=== PATIENT | male | born 1945 | race Hispanic/Latino ===

== ENCOUNTER 2017-05-28 00:48 | Emergency (ER) | payer OTHER ==
[2017-05-28] MEDS ORDERED: Diltiazem 125 MG/25 ML ONE (02:15)
[2017-05-28 02:22] LABS: INR-International Normal Ratio 1.1; PTT 31.2 SEC (22.9-36.1); Prothrombin Time 13.9 SEC (12.0-14.7)
[2017-05-28 02:31] LABS: Anion Gap 17 mmol/L (10-20); BUN (Urea Nitrogen) 41 mg/dL (8.4-25.7); Calcium 9.5 mg/dL (7.8-10.44); Carbon Dioxide 25 mmol/L (23-31); Chloride 101 mmol/L (98-107); Glucose 123 mg/dL (80-115); Potassium 4.8 mmol/L (3.5-5.1); Sodium 138 mmol/L (136-145)
[2017-05-28 02:38] LABS: Troponin I 0.029 ng/mL (< 0.028)
[2017-05-28 02:39] LABS: #Basophils 0.1 thou/uL (0.0-0.2); #Eosinphils 0.1 thou/uL (0.0-0.7); #Monocytes 0.7 thou/uL (0.11-0.59); #Neutrophils 6.8 thou/uL (1.40-6.50); %Basophils 0.9 % (0.0-1.0); %Eosinophils 1.6 % (0.0-10.0); %Lymphocytes 11.8 % (21.0-51.0); %Monocytes 8.4 % (0.0-10.0); %Neutrophils 77.3 % (42.0-75.0); Hemoglobin 9.4 g/dL (14.0-18.0); Mean Corpuscular HGB CONC 32.2 g/dL (32.0-36.0); Mean Corpuscular Hemoglobin 27.7 pg (27.0-31.0); Mean Corpuscular Volume 86.1 fl (80.0-94.0); Mean Platelet Volume 7.3 fL (7.4-10.4); Platelet Count 171 thou/uL (130-400); RBC Distribution Width 15.2 % (11.5-14.5); Red Blood Cell (RBC) Count 3.41 mill/uL (4.70-6.10); White Blood Cell (WBC) Count 8.8 thou/uL (4.8-10.8)
[2017-05-28 02:42] LABS: CKMB 0.8 ng/mL (0-6.6)
[2017-05-28 03:05] LABS: Calc. Creatinine Clearance 0 mL/min (70-130); Estimated GFR-MDRD 6
[2017-05-28] MEDS ORDERED: Oseltamivir 75 MG CAP ONE (03:24)
[2017-05-28] MEDS ORDERED: HYDROcodone/Acetaminophen 10/325 mg Tablet ONE (03:24)
[2017-05-28] MEDS ORDERED: Amoxicillin/Potassium Clav 875 MG TAB ONE (03:26)
--- NOTE | 2017-05-28 08:09 | RAD ---
PORTABLE CHEST 1 VIEW: DATE: 05/28/17. TIME: 2:12 a.m. HISTORY: Dyspnea. FINDINGS: Comparison is made with the exam of 07/30/15. A left-sided pacing device remains in place. The heart is enlarged. A left internal jugular dialysi s catheter is present with tip in the projection of the cavoatrial junction. The lungs are well expa nded without focal areas of consolidation, pneumothorax, lloyd pulmonary edema, or large effusions. POS: [facility]
--- NOTE | 2017-05-28 08:11 | RAD ---
ABDOMEN 1 VIEW: HISTORY: Abdominal pain. FINDINGS/IMPRESSION: A large-bore venous catheter is seen extending from the right groin into the right upper quadrant wit h tip in the projection of the IVC. Surgical clips are present in the right groin and the right uppe r quadrant. A right common iliac vascular stent is present. The bowel gas pattern is unremarkable. There are degenerative changes in the spine. POS: [facility]
== END 2017-05-28 03:45 | disposition home or self-care (01) ==
LOC: EDBD → MADERS 00:48
DX: J11.1 Influenza due to unidentified influenza virus with other respiratory manifestations (principal); I25.10 Atherosclerotic heart disease of native coronary artery without angina pectoris; E78.5 Hyperlipidemia, unspecified; E11.9 Type 2 diabetes mellitus without complications; I12.0 Hypertensive chronic kidney disease with stage 5 chronic kidney disease or end stage renal disease; N18.6 End stage renal disease; Z79.899 Other long term (current) drug therapy
CPT/HCPCS: 36415; 71010; 74000; 80048; 82553; 83880; 84484; 85025; 85610; 85730; 93005; 94760; 96374

== ENCOUNTER 2017-06-17 00:14 | Emergency (ER) | payer OTHER ==
[2017-06-17] MEDS ORDERED: Acetaminophen 500 MG TAB ONE (00:48)
[2017-06-17 00:49] LABS: #Basophils 0.1 thou/uL (0.0-0.2); #Eosinphils 0.2 thou/uL (0.0-0.7); #Lymphocytes 1.1 thou/uL (1.20-3.40); #Monocytes 0.8 thou/uL (0.11-0.59); %Basophils 0.6 % (0.0-1.0); %Lymphocytes 11.7 % (21.0-51.0); %Monocytes 8.9 % (0.0-10.0); %Neutrophils 76.8 % (42.0-75.0); Hemoglobin 8.9 g/dL (14.0-18.0); Mean Corpuscular HGB CONC 31.5 g/dL (32.0-36.0); Mean Corpuscular Volume 85.7 fl (80.0-94.0); Mean Platelet Volume 7.2 fL (7.4-10.4); Platelet Count 189 thou/uL (130-400); RBC Distribution Width 14.6 % (11.5-14.5); White Blood Cell (WBC) Count 9.1 thou/uL (4.8-10.8)
[2017-06-17 01:15] LABS: ALT (SGPT) 13 U/L (8-55); AST (SGOT) 13 U/L (5-34); Albumin 3.4 g/dL (3.4-4.8); Alkaline Phosphatase 81 U/L (40-150); Anion Gap 19 mmol/L (10-20); BUN (Urea Nitrogen) 20 mg/dL (8.4-25.7); Bilirubin, Total 0.5 mg/dL (0.2-1.2); CK (CPK) 34 U/L (30-200); Calc. Creatinine Clearance 0 mL/min (70-130); Calcium 8.8 mg/dL (7.8-10.44); Carbon Dioxide 25 mmol/L (23-31); Chloride 100 mmol/L (98-107); Estimated GFR-MDRD 10; Globulin 3.5 g/dL (2.4-3.5); Glucose 130 mg/dL (80-115); Potassium 3.6 mmol/L (3.5-5.1); Protein, Total 6.9 g/dL (5.8-8.1); Sodium 140 mmol/L (136-145)
[2017-06-17 01:18] LABS: CKMB 0.5 ng/mL (0-6.6); Troponin I 0.028 ng/mL (< 0.028)
[2017-06-17] MEDS ORDERED: Ibuprofen 200 MG TAB ONE (01:20)
[2017-06-17 01:44] LABS: Lipase 27 U/L (8-78)
[2017-06-17] MEDS ORDERED: Ondansetron ODT 4 MG TAB ONE (01:59)
[2017-06-17] MEDS ORDERED: Piperacillin/Tazobactam 4.5 GM VIAL ONE (02:03)
[2017-06-17] MEDS ORDERED: Sodium Chloride 0.9% 100 ML ONE (02:04)
--- NOTE | 2017-06-17 07:40 | RAD ---
SINGLE VIEW OF THE CHEST: COMPARISON: 05/28/17. HISTORY: Shortness of breath and dyspnea. FINDINGS: A single view of the chest shows a cardiomediastinal silhouette which is upper limits of normal in si ze. The dialysis catheter and pacemaker are unchanged in position. There is no evidence of consolid ation, mass, or pleural effusion. IMPRESSION: No evidence of acute cardiopulmonary disease. POS: [facility]
[2017-06-17] MEDS ORDERED: Sodium Chloride 0.9% 500 ML BAG ONE (08:50)
[2017-06-17] MEDS ORDERED: Sodium Chloride 0.9% 1,000 ML BAG ONE (08:50)
== END 2017-06-17 02:44 | disposition short-term general hospital (02) ==
LOC: EDBD → MADERS 00:14
DX: A41.9 Sepsis, unspecified organism (principal); I12.0 Hypertensive chronic kidney disease with stage 5 chronic kidney disease or end stage renal disease; N18.6 End stage renal disease; I25.10 Atherosclerotic heart disease of native coronary artery without angina pectoris; E78.5 Hyperlipidemia, unspecified; E11.9 Type 2 diabetes mellitus without complications; Z99.2 Dependence on renal dialysis; Z79.899 Other long term (current) drug therapy; F17.210 Nicotine dependence, cigarettes, uncomplicated
CPT/HCPCS: 71045; 80053; 82550; 82553; 83605; 83690; 84484; 85025; 87040; 87804; 93005; 96365; J2543; J3370; J7050; Q0162